=== PATIENT | female | born 1990 | race Caucasian/White ===

== ENCOUNTER 2022-01-26 13:40 | Inpatient (IN) | payer SELFPAY ==
[2022-01-26] VITALS (27 sets, daily range): BP systolic 121–161; BP diastolic 71–98; PULSE 85–103; TEMP 36.3–36.9; O2SAT 81–98; BMI 27.8
[2022-01-26] MEDS: Lactated Ringers 1,000 ML 50 ML IV (14:20)
[2022-01-26 14:57] LABS: Absolute Lymphocyte Count 1.75 X10^3/uL (0.83-4.51); Basophil# 0.02 X10^3/uL; Basophil% 0.2 % (0-1); Eosinophil# 0.05 X10^3/uL; Eosinophils% 0.5 % (0-5); Hematocrit 37.4 % (37-47); Hemoglobin 13.5 g/dL (12.0-15.0); Lymphocyte # 1.75 X10^3/ul (0.83-4.51); Lymphocyte % 18.5 % (19-41); Mean Corp Hgb Conc 36.1 g/dL (32-36); Mean Corpuscular Hgb 32.3 pg (27.0-32.0); Mean Corpuscular Volume 89.5 fL (81-99); Mean Platelet Vol. 9.5 fl (6.2-12.0); Monocyte# 0.64 X10^3/uL; Monocyte% 6.8 % (0-10); NRBC Flagged by Analyzer 0 % (0-5); Neutrophil # 6.98 X10^3/uL (2.7-7.7); Neutrophil % 73.6 % (47-70); Platelet Count 218 K/mm3 (150-450); RBC Distribution Width CV 13.2 % (11.6-14.6); RBC Distribution Width SD 43.2 fl (35.1-43.9); Red Blood Count 4.18 M/mm3 (4.2-5.4); White Blood Count 9.5 K/mm3 (4.4-11.0)
[2022-01-26] MEDS: Oxytocin 30 units/NS 500 ml 30 UNITS/500 ML IV.SOLN IV (15:03)
[2022-01-26 16:25] LABS: HIV - WCH Non-Reactive (Nonreactive); Hepatitis C Antibody Non-Reactive (Nonreactive)
--- NOTE | 2022-01-26 17:06 | PCM.HP.OB ---
HPI - General General Date of Admission: 01/26/22 Date of Service: 01/26/22 Chief Complaint: Leaking of fluid HPI Narrative CODY TORRES, is a 31-year-old 3 para 2 female presents at 37 6/7 weeks with a EDC of 02/08/2022 by last menstrual period which was consistent with 20-week ultrasound findings presents complaining of spontaneous rupture membranes at 01/25/2022 at approximately 8:30 AM. She was at the [facility] where they attempted nipple stimulation and castor oil to induce labor. It was unsuccessful and she progressed from 1 to 3 cm overnight. I was contacted directly by the nurse gas cutting machine operator there at lunchtime about excepting transfer the patient. Patient was deemed stable for transfer for by the gas cutting machine operator and I agreed to except the transfer for induction of labor. She denied any vaginal bleeding. She is had good movement. Obstetrical history is significant for 2 previous vaginal deliveries both babies were approximately 7-1/2 pounds. She did have a Pitocin induction and a vacuum-assisted delivery with her first child. This has been uncomplicated to date. Maternal Data Information Final NEETA: 02/10/22 Gestational age: 37 6/7 PFSH PFSH Medical History no medical history Allergy/AdvReac Type Severity Reaction Status Date / Time No Known Allergies Allergy Verified 01/26/22 14:48 Family History (Updated 01/26/22 @ 15:46 by Krista Meyer) Father Colon cancer Social History Smoking Status: Never smoker History Elective abortions Hx Para 2 Spontaneous abortions Hx # Term Pregnancies Ectopic pregnancies Hx # Pregnancies Multiple births # of living children ROS Constitutional Constitutional: Denies fatigue, fever(s) or malaise Eyes Eyes: Denies change in vision ENT HEENT: Denies dizziness or headache(s) Cardiovascular Cardiovascular: Denies chest pain, dyspnea or lightheadedness Respiratory/Chest Respiratory/Chest: Denies cough or dyspnea Gastrointestinal Gastrointestinal: Denies change in bowel habits Genitourinary Genitourinary: Denies burning urination or genital lesions Integumentary Integumentary: Denies rash Neurologic Neurologic: Denies confusion, dizziness, headache(s), numbness or weakness Vital Signs Vital Signs Vital Signs: 01/26/22 14:31 01/26/22 14:31 01/26/22 15:01 Temperature Temperature Source Pulse Rate 97 Blood Pressure 131/84 H 125/79 H BP Systolic 131 125 BP Diastolic 84 79 Pulse Ox 01/26/22 15:01 01/26/22 15:01 01/26/22 15:00 Temperature Temperature Source Temporal Pulse Rate 92 Blood Pressure BP Systolic BP Diastolic Pulse Ox 81 01/26/22 15:00 01/26/22 16:01 01/26/22 16:01 Temperature 97.8 F Temperature Source Pulse Rate 103 H Blood Pressure 145/98 H BP Systolic 145 BP Diastolic 98 Pulse Ox 01/26/22 16:00 01/26/22 16:02 01/26/22 16:02 Temperature Temperature Source Pulse Rate 96 Blood Pressure 132/71 H BP Systolic 132 BP Diastolic 71 Pulse Ox 97 01/26/22 16:00 Temperature 98.4 F Temperature Source Pulse Rate Blood Pressure BP Systolic BP Diastolic Pulse Ox Weight Weight: 68.946 kg Body Mass Index (BMI) 27.8 Physical Exam Const alert and no apparent distress General Appearance: cooperative HEENT normocephalic Resp normal respiratory effort Cardio regular rate GI soft to palpation GI Narrative: gravid, nontender, appropriate for gestational age Extremity no calf tenderness General Extremity: edema Skin no wounds Rashes: No rashes noted Psych activity/motor behavior normal Labs Labs Labs: Blood Type A POSITIVE Antibody Screen NEGATIVE Hct 37.4 % (37-47) Hgb 13.5 g/dL (12.0-15.0) HIV 1&2 Antibody Non-Reactive (Nonreactive) Assessment & Plan (1) 37 weeks gestation of : (2) Multiparity: (3) PROM (premature rupture of membranes): PLAN: Plan 37-6/7 weeks with premature rupture of membranes. Estimated weight is less than 4500 g clinically and pelvis clinically adequate to expect vaginal delivery. Brief ultrasound was done that confirmed vertex fetus with minimal fluid. Patient's been leaking fluid continuously since admission. Will admit patient for Pitocin augmentation and expectant management. May have pain control measures as needed. Continue group B strep prophylaxis.
[2022-01-26] MEDS: Penicillin G 3,000,000 Units 50 ML 100 UNITS IV (19:30)
[2022-01-26] MEDS: Oxytocin 30 units/NS 500 ml 30 UNITS/500 ML IV.SOLN 334 UNITS IV (20:13)
--- NOTE | 2022-01-26 20:27 | EX.PCM.OBRPT ---
Assessment & Plan (1) PROM (premature rupture of membranes): (2) 37 weeks gestation of : (3) (spontaneous vaginal delivery): Maternal Data Information Final NEETA: 02/10/22 Gestational age: 37 6/7 Vaginal Delivery Maternal Presentation Maternal Presentation: Medically Indicated Induction (PROM) Type of Induction: Pitocin Operative Information Date of Procedure: 01/26/22 Pre-Operative Diagnosis: labor Post-Operative Diagnosis: same Surgery / Procedure Performed: Spontaneous Vaginal Delivery Type of Anesthesia: Local with 1% Lidocaine (12 cc) Special Medications: none Drain: - (none) Estimated Blood Loss: 200 Time of Delivery: 20:11 Findings Description of Procedure: A vigorous male infant was delivered [SHI] over [a second-degree perineal laceration]. [A loose nuchal cord ?1 was easily reduced.] The remainder the infant was delivered with maternal pushing and gentle traction only in less than 15 seconds. The Pitocin infusion was initiated for active management of the third stage. The cord was clamped and cut after cord pulsations stopped, at approximately 2-1/2-minute. The was attended to by the waiting nursing staff. The placenta was delivered spontaneously and intact. The cervix and vagina were intact. [The second-degree perineal laceration was repaired with 3-0 Vicryl suture in a running standard fashion.] Sponge and needle counts were correct. A vaginal sweep was completed by me. Presentation: SHI Amniotic Membrane Rupture Type: Spontaneous Amniotic Fluid Description: Clear Placental Delivery Description: Spontaneous Placenta Disposition: [facility] Cord Vessel Description: 3 Vessels Cord Entanglement: Around neck x 1, loose Nuchal Cord Compression: Without compression Infant A Gender: Male (Harrison) (1 minute): 8 (5 minute): 9 Post Vaginal Delivery Medications Given After Delivery: IV Pitocin Episiotomy Description: None Laceration: 2nd degree Complication Complications: None
[2022-01-26] MEDS: Ibuprofen 600 MG Tablet PO (21:26)
[2022-01-26] MEDS: 0.9% Saline Lock 10 ML Syringe IV (22:56)
[2022-01-27] VITALS (11 sets, daily range): BP systolic 97–126; BP diastolic 53–77; PULSE 83–93; RESP 14–17; TEMP 36.3–36.7; O2SAT 96–99
[2022-01-27] MEDS: Ibuprofen 600 MG Tablet PO ×3 (04:18→17:29)
--- NOTE | 2022-01-27 08:18 | PCM.PROGNOTE ---
Subjective Subjective patient seen at bedside, doing well. Patient reports good pain control. lochia mild. breast feeding well. Objective Data Objective Data Vital Signs: Vital Signs Temp Pulse Resp BP Pulse Ox O2 Del Method 98.0 F 91 16 97/53 L 97 Room Air 01/27/22 07:51 01/27/22 07:52 01/27/22 07:51 01/27/22 07:52 01/27/22 07:52 01/27/22 07:51 Oxygen Delivery Method Room Air Weight: 68.946 kg Body Mass Index (BMI) 27.8 Intake & Output: Intake and Output for Last 24 Hours 01/25/22 01/26/22 01/27/22 23:59 23:59 23:59 Intake Total 1427.84 / 1427.84 Output Total 200 / 200 Balance 1227.84 / 1227.84 Lab / Micro Data Result Diagrams: 01/26/22 14:05 Labs: Laboratory Results - last 24 hr 01/26/22 14:05: WBC 9.5, RBC 4.18 L, Hgb 13.5, Hct 37.4, MCV 89.5, MCH 32.3 H, MCHC 36.1 H, RDW Std Deviation 43.2, RDW Coeff of Moe 13.2, Plt Count 218, MPV 9.5, Immature Gran % (Auto) 0.400, Neut % (Auto) 73.6 H, Lymph % (Auto) 18.5 L, Bosque % (Auto) 6.8, Eos % (Auto) 0.5, Baso % (Auto) 0.2, Absolute Neuts (auto) 7.0, Absolute Lymphs (auto) 1.75, Nucleated RBC % 0 01/26/22 14:05: Blood Type A POSITIVE, Antibody Screen NEGATIVE 01/26/22 14:05: Hepatitis C Antibody Non-Reactive, HIV 1&2 Antibody Non-Reactive Physical Exam Const alert and oriented x3 General Appearance: cooperative HEENT normocephalic Neck General: normal visual inspection GI soft to palpation and non-distended GI Narrative: Fundus firm Extremity normal to inspection and no calf tenderness Skin no rashes or lesions noted Neuro oriented x3 and CN's II-XII intact bilaterally Psych mental status grossly normal Assessment & Plan Assessment/Plan (1) (spontaneous vaginal delivery): PLAN: Plan PPD#1 , Doing well Routine care pain mgmt ambulation
[2022-01-28 01:19] VITALS: BP 112/66; PULSE 83; RESP 16; TEMP 37
[2022-01-28 01:20] VITALS: BP 112/66; PULSE 83
[2022-01-28] MEDS: Senna/Docusate Sodium 1 Tablet PO (01:21)
[2022-01-28] MEDS: Ibuprofen 600 MG Tablet PO (01:22)
--- NOTE | 2022-01-28 08:03 | PCM.PN.OB ---
Subjective Subjective Patient seen at bedside. Feeling good. Denies any pain. Ambulating and voiding without difficulty. Lochia decreasing. with minimal support. Desires discharge home today. Objective Data Objective Data Vital Signs: Vital Signs Temp Pulse Resp BP Pulse Ox O2 Del Method 98.6 F 83 16 112/66 98 Room Air 01/28/22 01:19 01/28/22 01:20 01/28/22 01:19 01/28/22 01:20 01/27/22 19:53 01/28/22 01:19 Oxygen Delivery Method Room Air Weight: 152 lb Body Mass Index (BMI) 27.8 Intake & Output: Intake and Output for Last 24 Hours 01/26/22 01/27/22 01/28/22 23:59 23:59 23:59 Intake Total 1427.84 / 1427.84 Output Total 200 / 200 Balance 1227.84 / 1227.84 Lab / Micro Data Result Diagrams: 01/26/22 14:05 ROS Eyes Eyes: Denies blurry vision, change in vision or spots in vision ENT HEENT: Denies dizziness or headache(s) Cardiovascular Cardiovascular: Denies abdominal pain, chest pain or dyspnea Respiratory/Chest Respiratory/Chest: Denies cough, dyspnea, shortness of breath at rest or shortness of breath with exertion Gastrointestinal Gastrointestinal: Denies abdominal pain, diarrhea or vomiting Genitourinary Genitourinary: Denies change in urinary stream, difficulty urinating or dysuria Musculoskeletal Musculoskeletal: Reports none Integumentary Integumentary: Denies rash Neurologic Neurologic: Denies dizziness, headache(s), memory loss or weakness Physical Exam Const alert and no apparent distress General Appearance: cooperative and comfortable Exam Limitations: no limitations HEENT normocephalic Eyes General Eye: normal appearance of both eyes Neck full ROM General: normal visual inspection Chest Chest: symmetrical chest wall rise Resp normal respiratory effort and normal air movement Effort and Inspection: symmetric chest movement Auscultation: clear to auscultation bilaterally Cardio regular rate and regular rhythm GI normal to inspection, nondistended, normoactive bowel sounds Back/Spine normal ROM Extremity full ROM and no calf tenderness General Extremity: normal exam except as noted Skin no rashes or lesions noted Neuro CN's II-XII intact bilaterally Psych mental status grossly normal Assessment & Plan (1) (spontaneous vaginal delivery): (2) Care and examination of lactating mother: PLAN: Plan PPD 2 Routine care Pain control support D/C home with follow up in office
--- NOTE | 2022-01-28 08:06 | DCINST_ITS ---
Discharge Instructions Diet Discharge Diet: No restrictions Activity Discharge Activity: Return to Normal Activity and May Shower May resume sexual activity in: 4-6 weeks Weight Bearing Status: Weight bearing as tolerated Dressing / Incision Call your doctor if you observe: Fever of 101 or Higher, Inability to urinate, Using more than 1 pad per hour, Calf discomfort and Uncontrolled pain Follow Up Care Please Follow Up With: Keya Meza MD When: 2 weeks/6 weeks. Follow up with entry level sales consultant at [facility] Test Results: Test results from this visit will be discussed in further detail at your follow- up appointment, if applicable. Discharge Plan Admission Admit Date/Time: 01/26/22 13:40 Primary Reason for Your Visit: Labor and delivery Attending Provider: Keya Meza Primary Care Provider: Rod Fang Discharge Orders/Prescriptions Prescriptions: Discontinued alfalfa Tablet 3 tab PO TID magnesium 30 mg Tablet 60 mg PO DAILY Best Plus 3 cap PO/SL TID Composure 2 cap PO/SL DAILY Ninja Red 2 oz PO/SL DAILY Utropin 6 cap PO/SL DAILY goats root 3 cap PO/SL BID Referrals / Follow Up: Rod Fang DO [Primary Care Provider] - Disposition Disposition (needs filled in before D/C Order can be placed): Home, Self Care
[2022-01-28 08:49] VITALS: BP 119/79; PULSE 87
[2022-01-28 09:33] VITALS: BP 119/79; PULSE 87; RESP 16; TEMP 36.8
--- NOTE | 2022-01-28 12:07 | CASEMGMT ---
Social Work Assessment Labor and Delivery Unit Patient Address: [address] [place] [address] [address], [place] [id number] Phone number: [phone] Date of Referral: 01/27/2022 Time of Referral: 1748 Referred By: Dr. Keya Meza Date of Intervention: 01/29/2020 Time of Intervention: 1100 Reason for Referral: PHQ-9 score of 7 History obtained from: Medical records and mother of baby (MOB) Mae Fernandez Household composition: MOB, father of baby (FOB) and 2 older children. Plan for to reside in this home. Home situation is reported as safe and adequate. Patient's parent/guardian status: MOB is a 31-year-old female, to the FOB since both were the age of 20. MOB denies any type of domestic violence or safety concerns in this relationship. MOB and FOB now have 3 children together: Shirley (almost 10), Rao (almost 7), and baby florinda Ryan (born 01/26/2022). Medical History: MOB is 3, para 2 now 3 after delivering . [facility], then transitioned to [facility]. Infant delivered at 37 weeks gestation weighing 5 pounds 15 ounces. Apgars 8 and 9 at 1 and 5 minutes of life respectively. Educational Status: High school. No concerns with reading, writing, or learning comprehension. Financial Status: MOB stays at home and the FOB is self-employed MOB stays at home and the FOB is self-employed, part receiving and processing supervisor of a [employer]. FOB has a [employer] business on the side as well. Supplies: MOV reports to have necessary supplies to care for the infant including a car seat and safe sleep space in the form of a bassinet. Reports to have clothing, diapers, wipes to get started. Working on breast-feeding. Childcare/Caregiver(s): MOB. Transportation: Both MOB and FOB drive. No reported concerns. Programs/Agencies Involved: No agency involvement. No reported history of children services. And no legal issues. Behavioral Health Issues: Mental Health History: MACIE reports there have been periods of time over the years where she is felt more emotional. Describes some possible depression after the first daughter was born, and relates this to stressors of being a first-time mother with breast-feeding difficulty and ultimately going to bottle feeding. MOB then shared during the with the second daughter was very physically ill, had several family members who had miscarriages while MOB was , and MOB was feeling very overwhelmed with things and did have some thoughts about not wanting to have the baby. During this timeframe MOB did have some thoughts about dying, though reports never had a plan nor had MOB tried anything, and never had any actual desire to . PHQ-9 at this time is a score of 7 falling into the mild depression range. MOB does indicate that for the last month or so has not been sleeping well which MOB attributes to rather than to mood issues. As a consequence of not sleeping MOB's energy has been less. MOB did share some worry during this associated with family history of and loss and due to the MOB not gaining much weight in the last month. MOB reports that she feels much better now that the baby is born and healthy. No thoughts of suicide at this time or reported during this . MOB able to identify some coping skills of showering, taking baths, using scents such as essential oils, and being outside enjoying her surroundings and the quiet. Substance Use History: Denies any substance use or abuse history. Drug Screens: No drug screens noted in or current medical record. Family/Social Stressors: MOB reports worry during this related to not gaining weight and family history of late stage loss where the MOB did not gain weight. MOB admits to have some worry about managing 3 children and also homeschooling the oldest 2. Support Systems: MOB reports the FOB is her primary emotional support and the person that she mainly trust to talk about how she is feeling. Additional support for more practical things include the MOB sister who is a teacher and other family. MOB reports she and the FOB have hired a high school foreign language tutor to help her with the older children's home schooling, have hired a maid over the next couple of weeks to help with some of the home care management and to have a couple of helpers to assist with other things if needed. Depression/Shaken Baby/Safe Sleeping: Provided information on mood and anxiety disorders, risk factors, and importance of seeking self-care and support should symptoms arise and or become distressing. Reviewed PHQ-9. MOB is aware of safe sleeping and shaken baby. ASSESSMENT: Met with the MOB in room, introducing to self and social work role. MOB receptive, pleasant, and talkative with this mortgage or loan underwriter. MOB was spontaneous in talking about emotional health history, and some of the worries that MOB experience during this . MOB tearful at times, but appropriate to content being discussed. MOB asked questions about mood and anxiety disorders, and this mortgage or loan underwriter answer questions as able. Discussed coping skills and educated to some grounding techniques that MOB can use at home. MOB expressed appreciation for this mortgage or loan underwriter taking time to listen, and did identify would be more receptive to counseling or medication should depressive symptoms become increased or distressing. MOB reports to have necessary supplies at home to care for the baby, will have some wash helper coming in as well, and is giving herself 2 weeks off of any type of home schooling in order to get used to a schedule of 3 children. This mortgage or loan underwriter observed MOB to care for the baby, to be very attentive, and appeared to be bonding. There have been no expressed concerns regarding parent-child interactions or bonding. MOB excepted a resource packet on mood and anxiety disorders and a list of counselors. Provided MOB handouts on grounding techniques to assist with any type of depressive or anxiety distress. PLAN: MOB and infant will discharge home today. Resources have been provided for home-going, the MOB can reference once home. No other services requested or indicated. -SEDRICK Church MSW *This note was generated with [employer] software. It may contain incorrect words, spelling, and punctuation that were not noted in review of the chart prior to signing*
[2022-01-28 12:34] VITALS: BP 111/73; PULSE 81
[2022-01-28 13:00] VITALS: BP 111/73; PULSE 80; RESP 18; TEMP 36.7
== END 2022-01-28 13:05 | disposition home or self-care (01) | DRG 807 ==
PROVIDERS: Admitting Provider Obstetrics & Gynecology; PCP Family Medicine; Visit Provider Obstetrics & Gynecology
DX: O42.92 Full-term premature rupture of membranes, unspecified as to length of time between rupture and onset of labor (principal); Z37.0 Single live birth; O69.81X0 Labor and delivery complicated by cord around neck, without compression, not applicable or unspecified; O70.1 Second degree perineal laceration during delivery; Z3A.37 37 weeks gestation of pregnancy; Z39.1 Encounter for care and examination of lactating mother; Z64.1 Problems related to multiparity
CPT/HCPCS: 59025; 59050; 76815; 85025; 86703; 86803; 86850; 86900; 86901; 99218; J7120; A4216; G0378